=== PATIENT | female | born 1965 | race Caucasian/White ===

== ENCOUNTER 2023-03-01 02:48 | Emergency (ER) | payer OTHER ==
[2023-03-01 03:18] VITALS: TEMP 97.7
[2023-03-01 03:19] LABS: Appearance Clear (Clear); Bacteria None Seen /HPF (None Seen); Bilirubin Moderate (Negative); Blood Small (Negative); Epithelial Cells Rare /HPF (None Seen); Glucose, Urine Negative (Negative); Hyaline Casts NONE SEEN /LPF (0-2); Ketones Negative (Negative); Leukocyte Esterase Small (Negative); Nitrite Positive (Negative); Protein,Urine Dip 300 (Negative); Specific Gravity 1.015 (1.005-1.030)
[2023-03-01 03:20] LABS: ADD URINE CULTURE? YES (NO)
--- NOTE | 2023-03-01 03:51 | ERPHSYRPT ---
- History of Present Illness Time Seen by Provider: 03/01/23 03:25 Historian: patient, family Exam Limitations: no limitations Patient Subjective Stated Complaint: pt states she thinks she has a severe uti because has been having pressure and pain in her bladder area Triage Nursing Assessment: pt alert and oriented, answers questions approp. pt a mbulates into room with steady gait noted. skin warm and dry. respirations nonlabored. urine orange and clear. pt states she has taken azo today. abd soft with bowel sounds x4 Physician History: This is a 57-year-old white female patient who presents with relatively sudden onset of suprapubic and flank pain lose onset began approximately 8:30 PM on 02/28/2023. The pain did not let up. Patient was at work. She could not tolerate the pain therefore she came into the emergency department for evaluation. Patient states that she does have kidney issues. She has atrophied right kidney and a hypertrophied left kidney. This has been a chronic issue for her. She also sees a fibreglass laminator, Dr. Whitfield. Patient denies chest pain. Patient denies shortness of breath. She has no flulike symptoms. She does have urinary tract infection symptoms with the flank pain, suprapubic pressure/pain and burning with urination. Patient has a history of recurrent urinary tract infections but never this intense or lasting this long. Patient states that she can take Demerol and Dilaudid pain medicine intravenously but needs to avoid morphine. Timing/Duration: yesterday Quality: sharpness, stabbing Abdominal Pain Onset Location: suprapubic, flank Severity of Pain-Max: moderate Severity of Pain-Current: moderate Modifying Factors: Improves With: nothing, other (Pain somewhat lessened when she lays on her left side) Associated Symptoms: loss of appetite, No fever/chills Previous symptoms: no prior history, no recent treatment Allergies/Adverse Reactions: morphine Adverse Reaction (Severe, Verified 03/01/23 03:24) Vomiting propofol Adverse Reaction (Severe, Verified 03/01/23 03:24) pt states it shuts down her renal and gi function Home Medications: Aspirin EC 81 mg [Ecotrin 81 mg] 81 mg PO DAILY 03/01/23 [History] Linaclotide [Linzess] 290 mcg PO DAILY 03/01/23 [History] Ondansetron ODT 4 MG [Zofran Odt 4 mg] 4 mg PO Q6HPRN PRN 03/01/23 [History] PANTOPRAZOLE 40 mg Tablet [Protonix 40MG Tablet] 40 mg PO DAILY 03/01/23 [History] Hx Tetanus, Diphtheria Vaccination/Date Given: Yes Hx Influenza Vaccination/Date Given: No Hx Pneumococcal Vaccination/Date Given: No Immunizations Up to Date: Yes Travel Risk - International Travel Have you traveled outside of the country in past 3 weeks: No - Coronavirus Screening Are you exhibiting any of the following symptoms?: No Close contact with a COVID-19 positive Pt in past 14-21 Days: No - Vaccine Status Have you recieved a Covid-19 vaccination: Yes 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[employer] - Vaccination Dates Date of 2cond Vaccination (if applicable): na - Review of Systems Constitutional: No Symptoms Eyes: No Symptoms Ears, Nose, & Throat: No Symptoms Respiratory: No Symptoms Cardiac: No Symptoms Abdominal/Gastrointestinal: Abdominal Pain (Suprapubic) Genitourinary Symptoms: Dysuria, Flank Pain Musculoskeletal: No Symptoms Skin: No Symptoms Neurological: No Symptoms Psychological: No Symptoms Endocrine: No Symptoms Hematologic/Lymphatic: No Symptoms Immunological/Allergic: No Symptoms All Other Systems: Reviewed and Negative - Past Medical History Pertinent Past Medical History: Yes GI Medical History: Diverticulosis, Irritable Bowel History: Renal Disease Other Medical History: sees dr whitfield for kidneys - Past Surgical History Past Surgical History: Yes Gastrointestinal: Appendectomy, Cholecystectomy Musculoskeletal: Orthopedic Surgery Female Surgical History: Hysterectomy Other Surgical History: rt foot reconstruction - Social History Smoking Status: Current some day smoker How long have you smoked: 25 yrs Exposure to second hand smoke: No Drug Use: none Patient Lives Alone: No - Nursing Vital Signs Nursing Vital Signs: Initial Vital Signs Temperature 97.7 F 03/01/23 02:53 Pulse Rate 91 H 03/01/23 02:53 Respiratory Rate 18 03/01/23 02:53 Blood Pressure 151/85 03/01/23 02:53 O2 Sat by Pulse Oximetry 98 03/01/23 02:53 Pain Scale Pain Intensity 8 - Physical Exam General Appearance: no apparent distress, alert, anxiety Eye Exam: PERRL/EOMI, eyes nml inspection Ears, Nose, Throat Exam: normal ENT inspection, moist mucous membranes Neck Exam: normal inspection, non-tender, supple, full range of motion Respiratory Exam: normal breath sounds, lungs clear, airway intact, No chest tenderness, No respiratory distress Cardiovascular Exam: regular rate/rhythm, normal heart sounds, normal peripheral pulses Gastrointestinal/Abdomen Exam: soft, normal bowel sounds, tenderness (Suprapubic region), guarding, No rebound Pelvic Exam: not done Rectal Exam: not done Back Exam: normal inspection, normal range of motion, CVA tenderness (Flank pain left greater than right), No vertebral tenderness Extremity Exam: normal inspection, normal range of motion, pelvis stable Neurologic Exam: alert, oriented x 3, cooperative, 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, normal mood/affect, nml cerebellar function, nml station & gait, sensation nml Skin Exam: normal color, warm, dry Lymphatic Exam: No adenopathy SpO2 Interpretation: normal SpO2: 98 O2 Delivery: Room Air - Course Nursing assessment & vital signs reviewed: Yes Ordered Tests: Active Orders 24 hr Category Date Time Status IV Insertion STAT Care 03/01/23 04:05 Active ABDOMEN AND PELVIS W/0 CONTRAS [CT] Stat Exams 03/01/23 03:45 Completed AMYLASE Stat Lab 03/01/23 04:11 Completed BLOOD CULTURE Stat Lab 03/01/23 03:45 Received CBC W DIFF Stat Lab 03/01/23 04:11 Completed CMP Stat Lab 03/01/23 04:11 Completed CULTURE,URINE Stat Lab 03/01/23 03:10 Received LIPASE Stat Lab 03/01/23 04:11 Completed UA W/RFX UR CULTURE Stat Lab 03/01/23 03:10 Completed Medication Summary Discontinued Medications Generic Name Dose Route Start Last Admin Trade Name Freq PRN Reason Stop Dose Admin Hydromorphone HCl 1 mg 03/01/23 03:44 03/01/23 04:20 Hydromorphone 1 Mg/1ml Inj IV 03/01/23 03:45 1 mg STAT ONE Administration Hydromorphone HCl Confirm 03/01/23 04:01 Hydromorphone 1 Mg/1ml Inj Administered 03/01/23 04:02 Dose 1 mg .ROUTE .STK-MED ONE Sodium Chloride 1,000 mls @ 999 mls/hr 03/01/23 03:44 03/01/23 04:14 Sodium Chloride 0.9% 1000 Ml IV 03/01/23 04:44 999 mls/hr .Q1H1M STA Administration Sodium Chloride Confirm 03/01/23 04:01 Sodium Chloride 0.9% 1000 Ml Administered 03/01/23 04:02 Dose 1,000 mls @ ud .ROUTE .STK-MED ONE Ceftriaxone Sodium/Dextrose 1 g in 50 mls @ 100 mls/hr 03/01/23 04:23 03/01/23 04:31 Rocephin 1 Gm-D5w 50 Ml Bag IV 03/01/23 04:52 100 ml/hr STAT STA 100 mls/hr Administration Ceftriaxone Sodium/Dextrose Confirm 03/01/23 04:30 Rocephin 1 Gm-D5w 50 Ml Bag Administered 03/01/23 04:31 Dose 1 g in 50 mls @ ud IV .STK-MED ONE Prochlorperazine Edisylate 5 mg 03/01/23 03:44 03/01/23 04:20 Prochlorperazine Edisylate 10 Mg/2 Ml Vial IV 03/01/23 03:45 5 mg STAT ONE Administration Prochlorperazine Edisylate Confirm 03/01/23 04:01 Prochlorperazine Edisylate 10 Mg/2 Ml Vial Administered 03/01/23 04:02 Dose 10 mg .ROUTE .STK-MED ONE Lab/Rad Data: Laboratory Result Diagrams 03/01/23 04:11 03/01/23 04:11 Laboratory Results 03/01/23 03/01/23 03/01/23 Range/Units 04:11 04:11 03:10 WBC 11.2 H (4.0-10.5) x10^3/uL RBC 4.85 (4.1-5.4) x10^6/uL Hgb 14.4 (12.0-16.0) g/dL Hct 43.3 (35-47) % MCV 89.3 (78-100) fL MCH 29.7 (26-32) pg MCHC 33.3 (32-36) g/dL RDW 12.2 (11.5-14.0) % Plt Count 217 (150-450) x10^3/uL MPV 9.4 (7.5-11.0) fL Gran % 66.6 H (36.0-66.0) % Immature Gran % (Auto) 0.4 (0.00-0.4) % Nucleat RBC Rel Count 0.0 (0.00-0.1) % Eos # (Auto) 0.13 (0-0.5) x10^3/uL Immature Gran # (Auto) 0.04 H (0.00-0.03) x10^3u/L Absolute Lymphs (auto) 2.83 (1.0-4.6) x10^3/uL Absolute Monos (auto) 0.67 (0.0-1.3) x10^3/uL Absolute Nucleated RBC 0.00 (0.00-0.01) x10^3u/L Lymphocytes % 25.2 (24.0-44.0) % Monocytes % 6.0 (0.0-12.0) % Eosinophils % 1.2 (0.00-5.0) % Basophils % 0.6 (0.0-0.4) % Absolute Granulocytes 7.48 H (1.4-6.9) x10^3/uL Basophils # 0.07 (0-0.4) x10^3/uL Sodium 135 L (137-145) mmol/L Potassium 4.0 (3.5-5.1) mmol/L Chloride 103 (98-107) mmol/L Carbon Dioxide 27 (22-30) mmol/L Anion Gap 9.6 (5-15) MEQ/L BUN 11 (7-17) mg/dL Creatinine 0.61 (0.52-1.04) mg/dL Estimated GFR 103.6 ML/MIN Glucose 105 (74-106) mg/dL Calcium 9.0 (8.4-10.2) mg/dL Total Bilirubin 0.60 (0.2-1.3) mg/dL AST 20 (14-36) U/L ALT 13 (0-35) U/L Alkaline Phosphatase 90 (38-126) U/L Serum Total Protein 8.1 (6.3-8.2) g/dL Albumin 4.1 (3.5-5.0) g/dL Amylase 53 (30-110) U/L Lipase 29 (23-300) U/L Urine Color [place] A (Yellow) Urine Appearance Clear (Clear) Urine pH 6.0 (4.6-8.0) Ur Specific [place] 1.015 (1.005-1.030) Urine Protein 300 A (Negative) Urine Glucose (UA) Negative (Negative) mg/dL Urine Ketones Negative (Negative) Urine Blood Small A (Negative) Urine Nitrite Positive A (Negative) Urine Bilirubin Moderate A (Negative) Urine Urobilinogen 1.0 A (0.2) mg/dL Ur Leukocyte Esterase Small A (Negative) U Hyaline Cast (Auto) NONE SEEN (0-2) /LPF Urine Microscopic RBC 6-10 A (0-5) /HPF Urine Microscopic WBC 6-10 A (0-5) /HPF Ur Epithelial Cells Rare (None Seen) /HPF Urine Bacteria None Seen (None Seen) /HPF Urine Culture Reflexed YES (NO) - Progress Progress: improved, pain not gone completely, re-examined Progress Note: 03/01/23 03:52 This patient's medical issue is 1 of moderate complexity. The level complex in the workup performed is based on review of the patient's past medical history, review the patient's medication list, review of patient's drug allergy list, history of present illness and physical findings on examination. The workup in this patient includes placement of intravenous line, infusion of normal saline solution, infusion of Dilaudid 1 mg, infusion of Compazine 5 mg intravenously, CBC, CMP, amylase, lipase, urinalysis, CT scan of the abdomen pelvis without contrast. 03/01/23 05:05 I reviewed and interpreted the patient's laboratory data results. Patient has a mild leukocytosis. Patient has a urinary tract infection. She also has proteinuria. CT scan of the abdomen pelvis without contrast was interpreted by the radiologist. The impression states mild fullness left kidney and ureter up to the left vesicleureteral junction. No obvious radiodense calculus or obstructing lesion. ? Recent passage of calculus. Counseled pt/family regarding: lab results, diagnosis, need for follow-up, rad results Medical Desision Making - Independent Historian Additional History obtained from: Spouse - Diagnostic Testing Diagnostic test were ordered, analyzed, and reviewed by me: Yes Radiological Interpretation: Reviewed by me, Teleradiologist Report - Risk of complications The pt has a mod risk of morbidity or mortality based on: Need for prescription drug management - Departure Departure Disposition: Home Clinical Impression: UTI (urinary tract infection), Proteinuria Condition: Stable Critical Care Time: No Referrals: FRANC OLIVER [Primary Care Provider] - Follow up/PCP as directed Additional Instructions: Drink plenty of fluids. Take your antibiotics and pain medicine as prescribed. Follow-up with your fibreglass laminator, by phone today, March 01, 2023, to make arranges for further evaluation management the next 3 to 5 days. Prescriptions: Cefdinir 300 mg PO BID #14 cap Hydrocodone/Acetaminophen [Hydrocodone-Acetamn 7.5-325/15] 10 ml PO Q8H PRN #120 ml MDD 30 ml PRN Reason: Cough
[2023-03-01] MEDS ORDERED: Hydromorphone 1 mg/ml Injection ONE (04:01)
[2023-03-01] MEDS ORDERED: Compazine 10 MG/2 ML ONE (04:01)
[2023-03-01] MEDS ORDERED: Sodium Chloride 0.9% 1000 ML 1,000 ML ONE (04:01)
[2023-03-01 04:14] LABS: Absolute Neutrophil Ct (ANC) 7.48 x10^3/uL (1.4-6.9); BASOPHIL % 0.6 % (0.0-0.4); Basophil (Absolute #) 0.07 x10^3/uL (0-0.4); Eosinophil % 1.2 % (0.00-5.0); Eosinophil (Absolute #) 0.13 x10^3/uL (0-0.5); Hematocrit 43.3 % (35-47); Hemoglobin 14.4 g/dL (12.0-16.0); IMMATURE GRAN # 0.04 x10^3u/L (0.00-0.03); IMMATURE GRAN % 0.4 % (0.00-0.4); Lymphocyte (Absolute #) 2.83 x10^3/uL (1.0-4.6); Lymphocytes % 25.2 % (24.0-44.0); Mean Cell Volume 89.3 fL (78-100); Mean Corpuscular Hemoglobin 29.7 pg (26-32); Mean Corpuscular Hgb Concent. 33.3 g/dL (32-36); Mean Platelet Volume 9.4 fL (7.5-11.0); Monocyte (Absolute #) 0.67 x10^3/uL (0.0-1.3); Neutrophil % 66.6 % (36.0-66.0); Platelet Count 217 x10^3/uL (150-450); Red Blood Count 4.85 x10^6/uL (4.1-5.4); Red Cell Distribution Width 12.2 % (11.5-14.0); White Blood Count 11.2 x10^3/uL (4.0-10.5)
[2023-03-01] MEDS: Sodium Chloride 0.9% 1000 ML 1,000 ML IV STA (04:14)
[2023-03-01] MEDS: Hydromorphone 1 mg/ml Injection IV ONE (04:20)
[2023-03-01] MEDS: Compazine 10 MG/2 ML IV ONE (04:20)
[2023-03-01 04:30] LABS: ALBUMIN 4.1 g/dL (3.5-5.0); ANION GAP 9.6 MEQ/L (5-15); BILIRUBIN,TOTAL 0.6 mg/dL (0.2-1.3); Creatinine 1 0.61 mg/dL (0.52-1.04); EST GLOMERULAR FILTRATION RATE 103.6 ML/MIN; Total Protein 8.1 g/dL (6.3-8.2)
[2023-03-01] MEDS ORDERED: ROCEPHIN 1 Gm-D5w 50 ml Bag** 1 G/50 ML IVPB IV ONE (04:30)
[2023-03-01] MEDS: ROCEPHIN 1 Gm-D5w 50 ml Bag** 1 G/50 ML IVPB IV STA (04:31)
--- NOTE | 2023-03-01 05:00 | XRAY ---
CLINICAL HISTORY:Suprapubic and flank pain COMPARISON:09/20/2022 09:07:00 COMMUNITY ENGAGEMENT REPRESENTATIVE TECHNIQUE:Contiguous axial images were obtained from the level of the diaphragm to the pubic symphysis without intravenous or oral contrast. Coronal and sagittal reconstructions were likewise performed and indicated to increase the sensitivity for detecting clinically relevant pathology. CT scan was performed according to ALARA (as low as reasonable achievable). FINDINGS: The visualized lung bases are clear. Evaluation of the abdominal and pelvic visceral organs is limited without intravenous contrast. The unenhanced liver, pancreas, and adrenal glands are grossly unremarkable. The gallbladder is not seen-post cholecystectomy status. Multiple punctate calcification are noted in spleen -suggest calcified granuloma. The kidneys are normal in size and attenuation without obvious calcification. Mild fullness noted in left kidney and ureter up to left vesico-ureteric junction without obvious radio-dense calculus or obstructing lesion -suggest p/o recent passage of calculus. No adenopathy or fluid collections are seen. No evidence of focal or diffuse bowel wall thickening or evidence of bowel obstruction is seen. The appendix is visualized in the right lower quadrant and appears within normal limits. The aorta is normal in caliber. The urinary bladder is normal in contour. Pelvic viscera are grossly unremarkable. No aggressive appearing osseous lesions are identified. Diffuse atherosclerosis calcification is noted in aorta and its major branches. Multiple small uncomplicated sigmoid diverticulosis noted. IMPRESSION: 1. 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 2. Mild fullness noted in left kidney and ureter up to left vesico-ureteric junction without obvious radio-dense calculus or obstructing lesion - suggest p/o recent passage of calculus. Electronically Signed by: Dr. Antonio Polo MD. (03/01/2023 04:57:41 EST)
[2023-03-01 05:49] VITALS: BP 104/61; PULSE 74; RESP 16; O2SAT 95
== END 2023-03-01 05:42 | disposition home or self-care (01) ==
LOC: ED 02:48
DX: N39.0 Urinary tract infection, site not specified (principal); R80.9 Proteinuria, unspecified; R10.2 Pelvic and perineal pain; R10.9 Unspecified abdominal pain; Z79.891 Long term (current) use of opiate analgesic; Z72.0 Tobacco use
CPT/HCPCS: 36000; 36415; 74176; 80053; 81001; 82150; 83690; 85025; 87040; 87086; 96365; 96374; 96375; 99284; J0696; J1170

== ENCOUNTER 2024-01-23 11:41 | Emergency (ER) | payer OTHER ==
[2024-01-23 12:00] VITALS: TEMP 97.2
[2024-01-23 12:31] LABS: Absolute Neutrophil Ct (ANC) 6.93 x10^3/uL (1.56-6.13); BASOPHIL % 0.5 % (0.1-1.2); Basophil (Absolute #) 0.06 x10^3/uL (0.01-0.08); Eosinophil % 1.2 % (0.7-5.8); Eosinophil (Absolute #) 0.13 x10^3/uL (0.04-0.36); Hemoglobin 14.2 g/dL (11.2-15.7); IMMATURE GRAN # 0.06 x10^3u/L (0.001-0.031); IMMATURE GRAN % 0.5 % (0.001-0.429); Lymphocyte (Absolute #) 3.35 x10^3/uL (1.18-3.74); Lymphocytes % 29.9 % (19.3-51.7); Mean Cell Volume 88.8 fL (79.4-94.8); Mean Corpuscular Hgb Concent. 33.8 g/dL (32.2-35.5); Mean Platelet Volume 9.6 fL (9.4-12.3); Monocyte (Absolute #) 0.67 x10^3/uL (0.24-0.86); Neutrophil % 61.9 % (34.0-71.1); Platelet Count 238 x10^3/uL (182-369); Red Blood Count 4.73 x10^6/uL (3.93-5.22); Red Cell Distribution Width 12.3 % (11.7-14.4); White Blood Count 11.2 x10^3/uL (3.98-10.04)
[2024-01-23] MEDS ORDERED: Zofran 4 MG/2 ML VIAL ONE (12:33)
[2024-01-23] MEDS ORDERED: TORAdol 30 mg Injection ONE (12:34)
[2024-01-23] MEDS ORDERED: Sodium Chloride 0.9% 1000 ML 1,000 ML ONE (12:34)
[2024-01-23] MEDS ORDERED: BABY ASPIRIN 81 MG CHEW ONE (12:34)
[2024-01-23] MEDS: BABY ASPIRIN 81 MG CHEW PO ONE (12:37)
[2024-01-23] MEDS: Sodium Chloride 0.9% 1000 ML 1,000 ML IV STA (12:37)
[2024-01-23] MEDS: Zofran 4 MG/2 ML VIAL IV ONE (12:39)
[2024-01-23] MEDS: TORAdol 30 mg Injection IV ONE (12:40)
[2024-01-23 12:42] LABS: ALBUMIN 4.3 g/dL (3.5-5.0); ANION GAP 15.1 MEQ/L (5-15); BILIRUBIN,TOTAL 0.3 mg/dL (0.2-1.3); Calcium 9.7 mg/dL (8.4-10.2); Creatinine 1 0.81 mg/dL (0.52-1.04); EST GLOMERULAR FILTRATION RATE 83.6 ML/MIN; Potassium 4.4 mmol/L (3.5-5.1); Total Protein 7.7 g/dL (6.3-8.2)
[2024-01-23 12:43] LABS: D-DIMER QUANTITATIVE 0.44 mg/L (0.0-0.50); INR 0.91 (0.8-3.0)
--- NOTE | 2024-01-23 13:02 | XRAY ---
Indication: Chest pain. Comparison: None Portable chest demonstrates normal heart and lungs with incidental mediastinal/left lung calcified granulomas. Bony thorax intact with osteopenia and minimal degenerative changes.
--- NOTE | 2024-01-23 14:52 | XRAY ---
Indication: Chest pain. Low oxygenation. Multiple contiguous axial images obtained through the chest using 80 cc Isovue 370 contrast and PE protocol. Comparison: None Good opacification pulmonary arteries to include the lobar and segmental branches. No pulmonary embolus. Heart not enlarged. Aorta is normal in course and caliber. Small paratracheal and tiny left hilar calcified nodes. No pathologic mediastinal/hilar lymphadenopathy. Small hiatal hernia. Lungs demonstrates mild diffuse pulmonary emphysema with biapical subpleural cystic changes. Incidental mild bilateral dependent atelectasis. No infiltrate or effusion. Bony thorax intact. Limited upper abdomen demonstrates fatty liver and right renal atrophy. Impression: 1. Negative pulmonary embolus. No acute cardiopulmonary abnormalities. 2. Chronic findings including pulmonary emphysema, hiatal hernia, fatty liver, old granulomatous disease, and right renal atrophy.
[2024-01-23 15:02] VITALS: BP 142/69; O2SAT 98
--- NOTE | 2024-01-23 16:21 | ERPHSYRPT ---
- History of Present Illness Time Seen by Provider: 01/23/24 11:51 Source: patient Exam Limitations: no limitations Patient Subjective Stated Complaint: pt here for an irregular heart beat and chest pain that comes and goes, she states her phone alerted, she also states th at she has been sob recently and had lower leg swelling Triage Nursing Assessment: pt alert,appears anxious at times, walked in, resp easy, skin w/d/p. no cough, moves all ext well, slight edema to lower legs Physician History: Patient is here with left-sided chest pain, irregular heartbeat. States that she got a phone alert that she was "in A-fib". States that she feels somewhat better now. Patient was seen in the emergency department last week for left lower leg swelling. States that she is not on any blood thinners. No history of blood clots. No falls or other trauma. No fever no chills. She is otherwise been in her normal state of health. Patient states that she personally has no cardiac history. She is not on any blood pressure medications. She states that her father did have some cardiac issues. Patient is taking PO well. Same number of urinations and defecations. The patient has no signs of altered mental status, nuchal rigidity, signs of meningitis. The patient is up-to-date on all vaccinations. Allergies/Adverse Reactions: morphine Adverse Reaction (Severe, Verified 01/23/24 12:02) Vomiting propofol Adverse Reaction (Severe, Verified 01/23/24 12:02) pt states it shuts down her renal and gi function Home Medications: Aspirin EC 81 mg [Ecotrin 81 mg] 81 mg PO DAILY 03/01/23 [History] PANTOPRAZOLE 40 mg Tablet [Protonix 40MG Tablet] 40 mg PO DAILY 03/01/23 [History] Hx Tetanus, Diphtheria Vaccination/Date Given: Yes Hx Influenza Vaccination/Date Given: No Hx Pneumococcal Vaccination/Date Given: No Immunizations Up to Date: No Travel Risk - International Travel Have you traveled outside of the country in past 3 weeks: No - Emerging Infectious Disease Are you exhibiting symptoms associated with any current EIDs: No - Past Medical History Pertinent Past Medical History: Yes GI Medical History: Diverticulosis, Irritable Bowel History: Renal Disease Other Medical History: sees dr orozco for kidneys - Past Surgical History Past Surgical History: Yes Gastrointestinal: Appendectomy, Cholecystectomy Musculoskeletal: Orthopedic Surgery Female Surgical History: Hysterectomy Other Surgical History: rt foot reconstruction - Social History Smoking Status: Current some day smoker How long have you smoked: 25 yrs Exposure to second hand smoke: No Drug Use: none Patient Lives Alone: No - Social Determinants of Health Will the patient participate in the screening: Declined to provide - Nursing Vital Signs Nursing Vital Signs: Initial Vital Signs Temperature 97.2 F 01/23/24 11:58 Pulse Rate 91 H 01/23/24 11:58 Respiratory Rate 22 01/23/24 11:58 Blood Pressure 134/82 01/23/24 11:58 O2 Sat by Pulse Oximetry 94 L 01/23/24 11:58 Pain Scale Pain Intensity 4 - Physical Exam SpO2 Interpretation: normal SpO2: 98 Comments: 01/23/24 16:52 Review of Systems Constitutional: Negative for fever. HENT: Negative for congestion. Respiratory: Negative for shortness of breath. Cardiovascular: Chest pain, left calf pain. Gastrointestinal: Negative for abdominal pain. Genitourinary: Negative for dysuria. Musculoskeletal: Negative for back pain. Skin: Negative for rash. Neurological: Negative for headaches. Psychiatric/Behavioral: Negative for behavioral problems. All other systems reviewed and are negative. Physical Exam Vitals signs and nursing note reviewed. Constitutional: Appearance: Patient is well-developed. HENT: Head: Normocephalic and atraumatic. Eyes: Conjunctiva/sclera: Conjunctivae normal. Neck: Musculoskeletal: Normal range of motion. Trachea: No tracheal deviation. Cardiovascular: Rate and Rhythm: Normal rate. Pulmonary: Effort: Pulmonary effort is normal. No respiratory distress. Abdominal: Palpations: Abdomen is soft. Musculoskeletal: General: Left calf demonstrates no redness, no signs of DVT, no signs of Achilles injury. No obvious deformity, sensation intact, 2+ capillary refill, 2 point tactile discrimination intact. 5 out of 5 strength. Full range of motion without pain. Compartments are soft, nontender. Overlying skin shows no tenting, bruising, ecchymosis. Skin: General: Skin is warm and dry. Neurological/ Psychiatric: Mental Status: Mental status, behavior, interaction with environment is appropriate for patient's age and condition - Course Nursing assessment & vital signs reviewed: Yes EKG Interpreted by Me: Sinus Rhythm (EKG shows sinus rhythm, rate of 87, AR interval of 127, QRS 86, QTc is 420, no STEMI or other ST changes) Ordered Tests: Active Orders 24 hr Category Date Time Status Igniter Capper STAT Care 01/23/24 12:08 Active EKG-ER Only STAT Care 01/23/24 12:07 Active IV Insertion STAT Care 01/23/24 12:07 Active CHEST 1 VIEW (PORTABLE) Stat Exams 01/23/24 12:08 Completed CHEST WITH CONTRAST [CT] Stat Exams 01/23/24 13:08 Completed CBC W DIFF Stat Lab 01/23/24 11:46 Completed CK-Creatinine Phosphokinase Stat Lab 01/23/24 11:46 Completed CMP Stat Lab 01/23/24 11:46 Completed D-DIMER QUANTITATIVE Stat Lab 01/23/24 11:46 Completed PROTIME WITH INR Stat Lab 01/23/24 11:46 Completed TROPONIN Q4H Lab 01/23/24 11:46 Completed TROPONIN Q4H Lab 01/23/24 15:33 Completed TROPONIN Q4H Lab 01/23/24 20:15 Ordered Bardy 7-14 Day Holter ONCE RT 01/23/24 16:26 Active Medication Summary Discontinued Medications Generic Name Dose Route Start Last Admin Trade Name Freq PRN Reason Stop Dose Admin Aspirin 324 mg 01/23/24 12:07 01/23/24 12:37 Aspirin 81 Mg Tab.Chew PO 01/23/24 12:08 324 mg STAT ONE Administration Aspirin Confirm 01/23/24 12:34 Aspirin 81 Mg Tab.Chew Administered 01/23/24 12:35 Dose 324 mg .ROUTE .STK-MED ONE Sodium Chloride 1,000 mls @ 999 mls/hr 01/23/24 12:07 01/23/24 13:42 Sodium Chloride 0.9% 1000 Ml IV 01/23/24 13:07 Infused .Q1H1M STA Infusion Sodium Chloride Confirm 01/23/24 12:34 Sodium Chloride 0.9% 1000 Ml Administered 01/23/24 12:35 Dose 1,000 mls @ ud .ROUTE .STK-MED ONE Ketorolac Tromethamine 30 mg 01/23/24 12:09 01/23/24 12:40 Ketorolac Tromethamine 30 Mg/Ml Inj IV 01/23/24 12:10 30 mg STAT ONE Administration Ketorolac Tromethamine Confirm 01/23/24 12:34 Ketorolac Tromethamine 30 Mg/Ml Inj Administered 01/23/24 12:35 Dose 30 mg .ROUTE .STK-MED ONE Ondansetron HCl 4 mg 01/23/24 12:07 01/23/24 12:39 Ondansetron Hcl 4 Mg/2 Ml Vial IV 01/23/24 12:08 4 mg STAT ONE Administration Ondansetron HCl Confirm 01/23/24 12:33 Ondansetron Hcl 4 Mg/2 Ml Vial Administered 01/23/24 12:34 Dose 4 mg .ROUTE .STK-MED ONE Lab/Rad Data: Laboratory Result Diagrams 01/23/24 11:46 01/23/24 11:46 Laboratory Results 01/23/24 01/23/24 01/23/24 Range/Units 15:33 11:46 11:46 WBC (3.98-10.04) x10^3/uL RBC (3.93-5.22) x10^6/uL Hgb (11.2-15.7) g/dL Hct (34.1-44.9) % MCV (79.4-94.8) fL MCH (25.6-32.2) pg MCHC (32.2-35.5) g/dL RDW (11.7-14.4) % Plt Count (182-369) x10^3/uL MPV (9.4-12.3) fL Gran % (34.0-71.1) % Immature Gran % (Auto) (0.001-0.429) % Nucleat RBC Rel Count (0.00-0.2) % Eos # (Auto) (0.04-0.36) x10^3/uL Immature Gran # (Auto) (0.001-0.031) x10^3u/L Absolute Lymphs (auto) (1.18-3.74) x10^3/uL Absolute Monos (auto) (0.24-0.86) x10^3/uL Absolute Nucleated RBC (0.00-0.012) x10^3u/L Lymphocytes % (19.3-51.7) % Monocytes % (4.7-12.5) % Eosinophils % (0.7-5.8) % Basophils % (0.1-1.2) % Absolute Granulocytes (1.56-6.13) x10^3/uL Basophils # (0.01-0.08) x10^3/uL PT 10.0 (9.4-12.5) SECONDS INR 0.91 (0.8-3.0) D-Dimer 0.44 (0.0-0.50) mg/L Sodium (135-145) mmol/L Potassium (3.5-5.1) mmol/L Chloride (98-107) mmol/L Carbon Dioxide (22-30) mmol/L Anion Gap (5-15) MEQ/L BUN (7-17) mg/dL Creatinine (0.52-1.04) mg/dL Estimated GFR ML/MIN Glucose (74-106) mg/dL Calcium (8.4-10.2) mg/dL Total Bilirubin (0.2-1.3) mg/dL AST (14-36) U/L ALT (0-35) U/L Alkaline Phosphatase (38-126) U/L Creatine Kinase (30-135) U/L Troponin I < 0.012 < 0.012 (0.000-0.033) ng/mL Serum Total Protein (6.3-8.2) g/dL Albumin (3.5-5.0) g/dL 01/23/24 01/23/24 Range/Units 11:46 11:46 WBC 11.2 H (3.98-10.04) x10^3/uL RBC 4.73 (3.93-5.22) x10^6/uL Hgb 14.2 (11.2-15.7) g/dL Hct 42.0 (34.1-44.9) % MCV 88.8 (79.4-94.8) fL MCH 30.0 (25.6-32.2) pg MCHC 33.8 (32.2-35.5) g/dL RDW 12.3 (11.7-14.4) % Plt Count 238 (182-369) x10^3/uL MPV 9.6 (9.4-12.3) fL Gran % 61.9 (34.0-71.1) % Immature Gran % (Auto) 0.5 H (0.001-0.429) % Nucleat RBC Rel Count 0.0 (0.00-0.2) % Eos # (Auto) 0.13 (0.04-0.36) x10^3/uL Immature Gran # (Auto) 0.06 H (0.001-0.031) x10^3u/L Absolute Lymphs (auto) 3.35 (1.18-3.74) x10^3/uL Absolute Monos (auto) 0.67 (0.24-0.86) x10^3/uL Absolute Nucleated RBC 0.00 (0.00-0.012) x10^3u/L Lymphocytes % 29.9 (19.3-51.7) % Monocytes % 6.0 (4.7-12.5) % Eosinophils % 1.2 (0.7-5.8) % Basophils % 0.5 (0.1-1.2) % Absolute Granulocytes 6.93 H (1.56-6.13) x10^3/uL Basophils # 0.06 (0.01-0.08) x10^3/uL PT (9.4-12.5) SECONDS INR (0.8-3.0) D-Dimer (0.0-0.50) mg/L Sodium 137 (135-145) mmol/L Potassium 4.4 (3.5-5.1) mmol/L Chloride 104 (98-107) mmol/L Carbon Dioxide 23 (22-30) mmol/L Anion Gap 15.1 H (5-15) MEQ/L BUN 16 (7-17) mg/dL Creatinine 0.81 (0.52-1.04) mg/dL Estimated GFR 83.6 ML/MIN Glucose 121 H (74-106) mg/dL Calcium 9.7 (8.4-10.2) mg/dL Total Bilirubin 0.30 (0.2-1.3) mg/dL AST 28 (14-36) U/L ALT 30 (0-35) U/L Alkaline Phosphatase 99 (38-126) U/L Creatine Kinase 58 (30-135) U/L Troponin I (0.000-0.033) ng/mL Serum Total Protein 7.7 (6.3-8.2) g/dL Albumin 4.3 (3.5-5.0) g/dL - Progress Progress: improved Progress Note: 01/23/24 16:55 Differential diagnosis includes: PNA, STEMI, NSTEMI, other infection, musculoskeletal pain, pneumothorax - We'll obtain basic labs, fluids, EKG, troponin, chest x-ray - EKG shows no ST changes - my read - O2 saturations consistently greater than 95%. - CXR shows no pneumonia, pneumothorax - my read Patient has 2 negative troponins here in the emergency department over 3 hours. Patient had a negative D-dimer. However given this is her second visit and still has some nonspecific chest pain I do feel it is reasonable to obtain a CT of her chest. CTA of the chest demonstrates no pulmonary embolism, no obvious c ause for her chest pain tonight. We will place a Holter monitor on the patient to ensure that she has continued monitoring at home should anything change and will be able to follow-up with cardiology appropriately. Patient does not have a PCP, we also gave her a list of PCP follow-ups. At this point in time, EKG shows no ischemic changes, there is been no changes on the monitor technician she has been hooked up to the entire time. 2 negative troponins over the course with negative imaging. Given all this, I do not suspect the patient is having an acute myocardial infarction, or clinically si gnificant PE, aortic dissection. I do believe patient should follow-up closely as an outpatient. I did discuss all this with the patient, she will follow-up closely and return here sooner for any new or changing symptoms. I did discuss strict return precautions with the patient. Counseled pt/family regarding: lab results, diagnosis, need for follow-up, rad results - Departure Departure Disposition: Home Clinical Impression: Atypical chest pain Condition: Stable Critical Care Time: No Referrals: DOCTOR,NO FAMILY [Primary Care Provider] - Follow up/PCP as directed Instructions: Chest Pain (DC)
[2024-01-23 17:04] VITALS: PULSE 77; RESP 20
== END 2024-01-23 16:30 | disposition home or self-care (01) ==
LOC: ED 11:41
DX: R07.89 Other chest pain (principal); I49.9 Cardiac arrhythmia, unspecified; Z79.899 Other long term (current) drug therapy; Z72.0 Tobacco use
CPT/HCPCS: 36415; 71045; 71260; 80053; 82550; 84484; 85025; 85379; 85610; 93005; 93041; 93225; 96360; 96374; 96375; 99284; 99285; J1885; J2405; A9270-GY